=== PATIENT | male | born 1950 | race Caucasian/White ===

== ENCOUNTER → 2017-12-11 | Outpatient (CLI) | payer OTHER ==
[~2017-12-11] MED LIST: ALLOPURINOL100 MG PO; ASPIR 8181 M1 PO; FLUOXETINE HCL40 MG PO; HUMALOG100 UNIT/1 SC; HUMALOG100 UNIT/1 SQ; INDOMETHACIN50 MG PO; LEVEMIR100 UNIT/2 SC; LISINOPRIL40 MG PO; LO-DOSE ASPIRIN81 M1 PO; MELOXICAM15 MG PO; METFORMIN HCL1000 MG PO; MOBIC15 MG PO; NAPROXEN500 MG PO; OMEGA-31000 M1 PO; ORPHENADRINE C100 MG PO; PREDNISONE20 MG PO; PROZAC40 MG PO; SIMVASTATIN40 MG PO; VIAGRA100 MG PO; ZESTRIL40 MG PO
== END | disposition home or self-care (01) ==
LOC: NUC 10:14
DX: I42.9 Cardiomyopathy, unspecified (principal); R06.02 Shortness of breath
CPT/HCPCS: 78582; A9540; A9567